=== PATIENT | female | born 1975 | race Caucasian/White ===

== ENCOUNTER 2018-05-30 05:40 | Day surgery (SDC) | payer MEDICAID ==
[2018-05-29 10:44] LABS: HEMATOCRIT 40.8 % (36.0-48.0); HEMOGLOBIN 13.7 g/dL (12-16); MCH 30.9 pg (26.0-34.0); MCHC 33.6 g/dL (31.0-37.0); MCV 91.9 fL (80.0-100.0); RBC 4.44 10x6/uL (4.00-5.40); WBC 7.6 10x3/uL (4.8-10.8)
[2018-05-29 11:21] LABS: CALC OSMOLALITY 277 mosm/kg (275-300); CALCIUM 8.5 mg/dL (8.5-10.1); CARBON DIOXIDE 25.6 mmol/L (21.0-32.0); CHLORIDE - SERUM 106 mmol/L (98-107); CREATININE - SERUM 0.7 mg/dL (0.6-1.3); GLUCOSE 95 mg/dL (74-106); POTASSIUM - SERUM 4.2 mmol/L (3.5-5.1); SODIUM 140 mmol/L (136-145); UREA NITROGEN 10 mg/dL (7-18); eGFR NON AFRICAN AMERICAN > 90 mL/min (90-120)
[~2018-05-30] VITALS: Ht 292.1 cm; Wt 88.6 kg
[2018-05-30] VITALS (14 sets, daily range): BP systolic 110–139; BP diastolic 61–701; Ht 292.1 cm; Wt 88.6 kg
--- NOTE | ~2018-05-30 | OP ---
PATIENT NAME: CHARI DOWNS MEDICAL RECORD: [id number] :71 LOCATION:D[facility] ADMISSION DATE: SURGEON: GUILLERMO MANCIA MD DATE OF OPERATION: 05/30/2018 PREOPERATIVE DIAGNOSES: Disc herniation and osteophyte formation, C6-C7. POSTOPERATIVE DIAGNOSES: Disc herniation and osteophyte formation, C6-C7. PROCEDURE: Anterior cervical discectomy and fusion with coalition anterior cervical plate and screws at C6-C7. SURGEON: Guillermo Mancia MD PRIMARY CARE: Jewel Bacon MD with [facility] in [place]. DESCRIPTION AND TECHNIQUE: After induction of general endotracheal anesthesia, the patient was positioned supine on the operating table. Neck was prepped and draped in usual sterile fashion. Fluoroscopic x-ray and freer localized the C6-C7 interspace. A transverse skin incision was carried out from the midline to the sternocleidomastoid muscle. The platysma was divided with Bovie cautery. Using blunt and sharp dissection with Metzenbaum scissors, I proceeded in avascular plane medial to the carotid sheath. The C6-C7 interspace was identified with fluoroscopic x-ray and spinal needle. Longus colli muscles were elevated from bodies of C6 and C7. Self-retaining retractors placed deep to the longus colli muscles. Osteophytes were removed anteriorly at C6 and C7 with Adson rongeurs. Next, [place] pins were placed in the bodies of C6 and C7. The disc space was incised under distraction with a #11 blade. The disc was removed with pituitary rongeurs and curettes. The endplates were prepared with curettes. A microscope and Midas Asim drill were used to remove osteophytes and posteriorly. The posterior longitudinal ligament was removed with Cloward rongeurs. The dura was decompressed well. After this, a PEEK interbody cage was placed in the disc space under distraction. A separate anterior plate and screws was used to span C6-C7 interspace. Locking cams were tightened over the screw heads. Good position of the hardware was confirmed with fluoroscopic x-ray. Meticulous hemostasis was maintained throughout the wound. The platysma and subdermal layer closed with interrupted 3-0 Vicryl suture. The skin was reapproximated with Steri-Strips and benzoin. Sterile dressing was applied to the wound. The patient was awakened in good condition and taken to recovery. All counts were reported as correct. Estimated blood loss was minimal. TRANSINT:[id number] Voice Confirmation ID: [id number] DOCUMENT ID: [id number] GUILLERMO MANCIA MD at 0928 CC: [id number] DICTATION DATE: 06/18/18936 [facility] CAMERAMAN: 06/18/18 [id number] [place] 05/31/18 [place] [id number]
[~2018-05-30 05:40] MED LIST: BENTYL10 MG PO; CARAFATE1 G PO; HYDROCHLOROTHIA25 MG PO; IBUPROFEN800 MG PO; LIPITOR40 MG PO; MOBIC7.5 MG PO; NEURONTIN 300300 MG PO; NITROSTAT0.4 MG SL; NORVASC10 MG PO; PROTONIX20 MG PO; REQUIP0.5 MG PO; TENORMIN25 MG PO; TOPAMAX50 MG PO; TYLENOL #4 W/CO1 TAB PO; VALIUM5 MG PO; ZANAFLEX4 MG PO
[2018-05-31 04:56] VITALS: BP 114/75
[2018-05-31 08:25] VITALS: BP 135/84
== END 2018-05-31 10:35 | disposition home or self-care (01) ==
LOC: OBSVTIME → D.OPS 05:40 → D.PAN 07:30 → D.OPS 07:30 → D.MS 10:17 → D.OPS 10:55 → D.MS 10:55 → OBSVTIME 10:56 → D.OPS 05-31 10:35 → D.MS 05-31 10:35
PROVIDERS: Anesthesiology
DX: M50.223 Other cervical disc displacement at C6-C7 level (principal); M25.78 Osteophyte, vertebrae; Z01.812 Encounter for preprocedural laboratory examination

== ENCOUNTER 2018-06-04 01:28 | Emergency (ER) | payer MEDICAID ==
[~2018-06-04] VITALS: Ht 292.1 cm; Wt 90.0 kg
[2018-06-04 01:35] VITALS: Ht 292.1 cm; Wt 90.0 kg
[2018-06-04 02:05] LABS: BASOPHILS 0.2 % (0-2); HEMATOCRIT 43.7 % (36.0-48.0); HEMOGLOBIN 14.5 g/dL (12-16); IMMATURE GRANULOCYTES 0.3 % (0-5); LYMPHOCYTES 11.7 % (15-50); MCH 31.3 pg (26.0-34.0); MCHC 33.2 g/dL (31.0-37.0); MCV 94.4 fL (80.0-100.0); MEAN PLATELET VOLUME 11.5 fL (7.4-10.4); MONOCYTES 6.7 % (2-11); NEUTROPHILS 78.1 % (40-80); PLATELET COUNT 235 10x3/uL (130-400); RBC 4.63 10x6/uL (4.00-5.40); WBC 12.3 10x3/uL (4.8-10.8)
[2018-06-04 02:22] LABS: ALBUMIN 3.9 g/dL (3.4-5.0); ALKALINE PHOSPHATASE 101 U/L (46-116); ALT (SGPT) 60 U/L (10-68); BILIRUBIN - TOTAL 0.62 mg/dL (0.2-1.3); CALC OSMOLALITY 277 mosm/kg (275-300); CALCIUM 8.6 mg/dL (8.5-10.1); CARBON DIOXIDE 30.6 mmol/L (21.0-32.0); CHLORIDE - SERUM 101 mmol/L (98-107); CREATININE - SERUM 0.7 mg/dL (0.6-1.3); GLUCOSE 115 mg/dL (74-106); POTASSIUM - SERUM 3.9 mmol/L (3.5-5.1); PROTEIN - SERUM 7.7 g/dL (6.4-8.2); SODIUM 140 mmol/L (136-145); UREA NITROGEN 7 mg/dL (7-18); eGFR NON AFRICAN AMERICAN > 90 mL/min (90-120)
[2018-06-04 02:28] LABS: LIPASE 121 U/L (73-393); MAGNESIUM - SERUM 2.1 mg/dL (1.8-2.4); PRO BNP 389 pg/mL (0-125); TROPONIN-I < 0.017 ng/mL (0.000-0.060)
[2018-06-04] MEDS ORDERED: ZOFRAN ODT4 MG/UDTAB PO (02:46)
[2018-06-04 03:46] LABS: APPEARANCE CLOUDY (CLEAR); BILIRUBIN NEGATIVE (NEGATIVE); COLOR STRAW (YELLOW); GLUCOSE NEGATIVE (NEGATIVE); KETONE NEGATIVE (NEGATIVE); NITRITE NEGATIVE (NEGATIVE); PROTEIN NEGATIVE (NEGATIVE); SPECIFIC GRAVITY 1.005 (1.005-1.020); UROBILINOGEN NORMAL (NORMAL)
[2018-06-04 03:48] LABS: AMORPHOUS SEDIMENT <1+ /lpf (NONE SEEN); BACTERIA FEW /hpf (NONE SEEN); EPITHELIAL CELLS 0-5 /hpf (0-5); RED CELLS - URINE NONE SEEN /hpf (0-5); WHITE CELLS - URINE 0-5 /hpf (0-5)
[2018-06-04 04:47] VITALS: BP 148/85
== END 2018-06-04 04:55 | disposition home or self-care (01) ==
LOC: D.ER 01:28
PROVIDERS: Family Medicine
DX: G89.18 Other acute postprocedural pain (principal); R50.9 Fever, unspecified; R11.10 Vomiting, unspecified; I10 Essential (primary) hypertension; K21.9 Gastro-esophageal reflux disease without esophagitis